=== PATIENT | male | born 1990 | race Asian ===

== ENCOUNTER → 2017-03-22 | Outpatient (CLI) | payer MEDICAID ==
--- NOTE | ~2017-03-22 | US136 ---
[facility] A Service of [facility] RADIOLOGY TEXT RESULTS PATIENT: RACHEL STRANGE LOCATION: [facility] : [birth year] UNIT #: [id number] AGE: [address]: Dwight Arias MD SEX: M ORDER DR: [id number] [facility] [address] [place], [place] [address] [id number] O MR#: [id number] Acc #: [id number] NAME: RACHEL STRANGE : 1990 SEX: M STUDY DATE/TIME: 03/22/2017 10:12 UNIT: [facility] ROOM: STUDY DESCRIPTION: U/L Ext Art Study Ltd Bil Attending Physician: Dwight Arias M.D. Referring Physician: Dwight Arias M.D. Ordering Physician: Dwight Arias M.D. Primary Care Physician: Dwight Arias M.D. MEDICAL IMAGING REPORT This report is preliminary unless electronic signature is present EXAM Bilateral ankle-brachial indices INDICATION Burning sensation in both lower extremities for 1 month. TECHNIQUE Sequential pressures were obtained through both lower extremities and pulse volume recordings were generated. FINDINGS The patient's ankle-brachial indices within dorsalis pedis arteries bilaterally are diminished measuring 0.88 on the right and 0.86 on the left. Although they are normal at the posterior tibial arteries measuring 1.14 on the right and 1.12 on the left. Toe-brachial indices are at the lower limits of normal measuring 0.69 on the right and 0.69 on the left and I do think there is some dampening of the waveform. IMPRESSION 1. While the patient's ankle-brachial indices in the posterior tibial arteries are normal bilaterally, they are diminished within the dorsalis pedis arteries bilaterally which could reflect some single vessel disease in each lower extremity. Certainly CT could allow for additional assessment. This would be CT angiography with abdomen and pelvis with bilateral lower extremity runoff. 2. The patient's toe-brachial indices are borderline diminished with some dampening of the waveforms. Potentially this could reflect some inflow disease or small vessel disease or combination of both. Dictated by... Sarai Tran M.D. [facility] A Service of [facility] RADIOLOGY TEXT RESULTS PATIENT: RACHEL STRANGE LOCATION: [facility] : [birth year] UNIT #: [id number] AGE: [address]: Dwight Arias MD SEX: M ORDER DR: THIS IS AN ELECTRONICALLY VERIFIED REPORT Sarai Tran M.D. at 03/22/2017 4:56 PM MAURO/savanna TD: 03/22/2017 15:18 JOB #: [id number] MEDICAL IMAGING REPORT Page 1 of 1 COPY
== END | disposition home or self-care (01) ==
LOC: CNIV 10:03
DX: M79.671 Pain in right foot (principal); M79.672 Pain in left foot
CPT/HCPCS: 93922